=== PATIENT | female | born 1970 | race Caucasian/White ===

== ENCOUNTER 2020-03-16 09:08 | Day surgery (SDC) | payer BC ==
[~2020-03-16] VITALS: Ht 167.6 cm; Wt 79.0 kg
--- NOTE | 2020-03-16 11:06 | NUR ---
03/16/20 1106 Luz Maria Bronson 1038 PATIENT ARRIVES TO PACU SLEEPING, AWAKENS WITH VERBAL STIMULI, BUT IS VERY CONFUSED. BACK TO SLEEP. RESP EVEN AND UNLABORED, ROOM AIR SATS >93%. 1045 PATIENT SLEEPING. PASSING GAS. RESP EVEN AND UNLABORED. 1055 PATIENT SLEEPING. AWAKENS WITH VERBAL STIMULI. ABLE TO STAY AWAKE. DRINKING SIPS OF WATER. REPOSITIONS SELF TO BACK.
--- NOTE | 2020-03-17 06:22 | OR ---
[facility] [address] [place], [place] [address] Signed DATE OF OPERATION: 03/16/2020 SURGEON: Trav Chamberlain MD PREOPERATIVE DIAGNOSIS: Screening. POSTOPERATIVE DIAGNOSES: 1. A 4 mm polyp at 30 cm (clip). 2. Minimal to moderate pandiverticulosis. PROCEDURE: Colonoscopy with hot biopsy and clip placement. ESTIMATED BLOOD LOSS: Minimal. INDICATIONS: Rico is a 49-year-old female asked to see me for her initial screening colonoscopy. She has no lower GI complaints. There is no family history of colon cancer or polyps. This of course would be her first colonoscopy. In the office, I gave her a pamphlet on colonoscopy. We looked at that together along with the risks including, but not limited to gas bloating, crampy abdominal pain, bleeding, perforation requiring surgery, and missed diagnosis. We also discussed the need for IV conscious sedation. She had expressed understanding and wished to proceed. PROCEDURE NOTE: Rico was taken into our endoscopy suite and placed in the left lateral decubitus position. She was given IV sedation with 10 mg of Versed and 175 mcg of fentanyl. A digital rectal exam was performed and this was unremarkable. The adult colonoscope was introduced and advanced under direct visualization of camera all the way into the cecum under direct visualization. It took extra sedation and abdominal compression in order to advance the scope. Her prep was quite excellent. We could easily see the appendiceal orifice and the ileocecal valve. We took pictures throughout for photodocumentation. The scope was then slowly withdrawn. She has diverticula in the cecum of the right colon throughout the rest of the colon. They were moderate in size, few to moderate in number, and scattered about. Back at 30 cm, she had polypoid lesion, which we biopsied, it seemed to be a bit hemorrhagic. We cauterized it gently and then went ahead and placed a clip over that with good hemostasis. The rectum itself was unremarkable. Upon retroflexion of scope, there was no additional pathology above the Electronically Signed By: TRAV CHAMBERLAIN MD 03/17/20 0622 PATIENT NAME: RICO ROLON OPERATIVE REPORT DATE OF : 66 REPORT #: [id number] PHYSICIAN: TRAV CHAMBERLAIN MD PCP: EAMON EDWARDS REPORT IS CONFIDENTIAL AND NOT TO BE RELEASED WITHOUT AUTHORIZATION [address] [address] Signed anal canal. After this, the gas was suctioned out and colonoscope removed. Rico tolerated the procedure quite well. RECOMMENDATIONS: I will see Rico back in my office in 7 to 14 days to review her results. Trav Chamberlain MD ALB/MODL /[id number] cc: FRANCISCO Vincent MD Copies: TRAV CHAMBERLAIN MD ~ Electronically Signed By: TRAV CAHMBERLAIN MD 03/17/20 0622 PATIENT NAME: RICO ROLON OPERATIVE REPORT DATE OF : 66 REPORT #: [id number] PHYSICIAN: TRAV CHAMBERLAIN MD PCP: EAMON EDWARDS REPORT IS CONFIDENTIAL AND NOT TO BE RELEASED WITHOUT AUTHORIZATION
--- NOTE | 2020-03-17 12:18 | PATH ---
[facility] [address], [place] [address] Signed SPECIMEN(S): A COLON POLYP AT 30 CM SPECIMEN SOURCE: A. COLON POLYP AT 30 CM CLINICAL HISTORY: Screening. Colonoscopy. MICROSCOPIC DESCRIPTION: Histologic sections of all submitted blocks are examined by light microscopy. These findings, together with the gross examination, support the pathologic diagnosis. FINAL PATHOLOGIC DIAGNOSIS: Colon, polyp at 30 cm, polypectomy: - Polypoid granulation tissue lined by partially ulcerated colonic epithelium, compatible with inflammatory polyp. - Fragments of severely cauterized colonic mucosa. - See comment. COMMENTS: The minute fragments of cauterized colonic mucosa also present in the biopsy are so severely distorted by cautery artifact that definitive histologic examination cannot be performed. NAL:cml:C2NR GROSS DESCRIPTION: The specimen, labeled "LG, colon polyp at 30 cm," is received in formalin and consists of four hogan soft tissue fragments that measure 0.1-0.2 cm in greatest dimension. The specimen is entirely submitted in cassette (A1). JS (under the direct supervision of a pathologist) The Gross Description was prepared using a voice recognition system. The report was reviewed for accuracy; however, sound-alike word errors, addition and/or deletions may occur. If there is any question about this report, please contact Client Services. PERFORMING LABORATORY: The technical component was performed by [facility], [address] [place] [id number] ([employer]older: Yessica Mckeon MD; CLIA# [id number]). [facility], [address] [address] (CLIA# [id number]). PATIENT NAME: RICO ROLON PATHOLOGY DATE OF : 66 REPORT #: [id number] PHYSICIAN: ARIC PATHOLOGY PCP: EAMON EDWARDS REPORT IS CONFIDENTIAL AND NOT TO BE RELEASED WITHOUT AUTHORIZATION [address] [place], [place] [address] Signed Diagnostician: Adeline Gale MD Pathologist Electronically Signed 03/17/2020 Copies: ~ PATIENT NAME: RICO ROLON PATHOLOGY DATE OF : 66 REPORT #: [id number] PHYSICIAN: ARIC PATHOLOGY PCP: EAMON EDWARDS REPORT IS CONFIDENTIAL AND NOT TO BE RELEASED WITHOUT AUTHORIZATION
== END 2020-03-16 11:55 | disposition home or self-care (01) ==
LOC: OPS 09:08 → DS 09:13 → OPS 10:30
PROVIDERS: ATTEND Colon & Rectal Surgery
PROC: 0DBH8ZX Excision of Cecum, Via Natural or Artificial Opening Endoscopic, Diagnostic (ICD-10-PCS; principal; 2020-03-16 10:30)
DX: Z12.11 Encounter for screening for malignant neoplasm of colon (principal); K63.5 Polyp of colon; K57.30 Diverticulosis of large intestine without perforation or abscess without bleeding; Z87.891 Personal history of nicotine dependence; Z88.5 Allergy status to narcotic agent
CPT/HCPCS: 99153; G0500; J2250; J3010; J7121